=== PATIENT | female | born 1985 | race Caucasian/White ===

== ENCOUNTER → 2017-01-18 | Outpatient (REF) | payer OTHER | LOC: M LAB REF 19:22 | PROVIDERS: ATTEND Physician Assistant | DX: N39.0 Urinary tract infection, site not specified (principal) ==

== ENCOUNTER 2017-05-25 09:39 | Emergency (ER) | payer OTHER ==
[2017-05-25] MEDS: KETOROLAC 60 MG/2 ML VIAL (J1885) IM (11:14)
== END 2017-05-25 11:33 | disposition home or self-care (01) ==
LOC: M ED 09:39
DX: S16.1XXA Strain of muscle, fascia and tendon at neck level, initial encounter (principal); G44.209 Tension-type headache, unspecified, not intractable; G43.909 Migraine, unspecified, not intractable, without status migrainosus; V49.9XXA Car occupant (driver) (passenger) injured in unspecified traffic accident, initial encounter; Y92.9 Unspecified place or not applicable; Y93.9 Activity, unspecified; Z79.3 Long term (current) use of hormonal contraceptives; Z79.899 Other long term (current) drug therapy; Z88.8 Allergy status to other drugs, medicaments and biological substances
CPT/HCPCS: J1885

== ENCOUNTER → 2017-05-25 | Outpatient (CLI) | payer OTHER ==
[2017-05-25 12:17] LABS: HEMATOCRIT 42.6 % (36.0-47.0); HEMOGLOBIN 13.7 g/dl (12.0-16.0); MEAN CORPUSCULAR HGB CONC 32.2 g/dl (32.0-36.5); MEAN CORPUSCULAR VOLUME 90.3 fl (80.0-96.0); PLATELET COUNT, AUTOMATED 317 10^3/uL (150-450); RED BLOOD COUNT 4.72 10^6/uL (4.00-5.40)
[2017-05-25 12:43] LABS: ERYTHROCYTE SEDIMENTATION RATE 23 mm/hr (0-20)
[2017-05-25 13:03] LABS: TOTAL 25(OH) VITAMIN D 39.1 NG/ML (30.0-100.0)
[2017-05-25 13:10] LABS: ALBUMIN 3.6 GM/DL (3.2-5.2); ALKALINE PHOSPHATASE 69 U/L (45-117); ALT/SGPT 26 U/L (12-78); ANION GAP 6 MEQ/L (8-16); AST/SGOT 17 U/L (7-37); BILIRUBIN,TOTAL 0.5 MG/DL (0.2-1.0); BLOOD UREA NITROGEN 11 MG/DL (7-18); CALCIUM LEVEL 9.4 MG/DL (8.5-10.1); CARBON DIOXIDE LEVEL 29 MEQ/L (21-32); CHLORIDE LEVEL 105 MEQ/L (98-107); CHOLESTEROL LEVEL 217 MG/DL (<200); CHOLESTEROL RISK RATIO 3.945 (<5); CREATININE FOR GFR 0.81 MG/DL (0.55-1.02); GLOMERULAR FILTRATION RATE > 60.0 (>60); GLUCOSE, FASTING 85 MG/DL (70-105); HDL CHOLESTEROL 55 MG/DL (>40); IRON (FE) 78 UG/DL (50-170); LDL CHOLESTEROL 119.4 MG/DL (<100); NON-HDL-C 162 MG/DL; PERCENT SATURATION 20.2 % (13.2-45.0); POTASSIUM SERUM 4.6 MEQ/L (3.5-5.1); RHEUMATOID FACTOR QUANT < 10.0 IU/ML (0-15.0); SODIUM LEVEL 140 MEQ/L (136-145); THYROID STIMULATING HORMONE 0.907 uIU/ML (0.358-3.740); TOTAL IRON BINDING CAPACITY 386 UG/DL (250-450); TOTAL PROTEIN 7.2 GM/DL (6.4-8.2); TRIGLYCERIDES LEVEL 213 MG/DL (<150)
== END ==
LOC: M LAB 11:39
DX: D64.9 Anemia, unspecified (principal); E03.9 Hypothyroidism, unspecified
CPT/HCPCS: 83550

== ENCOUNTER → 2017-11-24 | Outpatient (CLI) | payer OTHER ==
[2017-11-24 11:59] LABS: HEMATOCRIT 44.1 % (36.0-47.0); HEMOGLOBIN 14.6 g/dl (12.0-15.5); MEAN CORPUSCULAR HEMOGLOBIN 29.7 pg (27.0-33.0); MEAN CORPUSCULAR HGB CONC 33.1 g/dl (32.0-36.5); MEAN CORPUSCULAR VOLUME 89.6 fl (80.0-96.0); PLATELET COUNT, AUTOMATED 259 10^3/uL (150-450); RED BLOOD COUNT 4.92 10^6/uL (4.00-5.40); RED CELL DISTRIBUTION WIDTH 12.9 % (11.5-14.5); WHITE BLOOD COUNT 14.1 10^3/uL (4.0-10.0)
[2017-11-24 12:36] LABS: ALBUMIN 3.5 GM/DL (3.2-5.2); ALBUMIN/GLOBULIN RATIO 0.88 (1.00-1.93); ALKALINE PHOSPHATASE 75 U/L (45-117); ALT/SGPT 36 U/L (12-78); ANION GAP 7 MEQ/L (8-16); AST/SGOT 17 U/L (7-37); BILIRUBIN,TOTAL 0.6 MG/DL (0.2-1.0); BLOOD UREA NITROGEN 16 MG/DL (7-18); CARBON DIOXIDE LEVEL 29 MEQ/L (21-32); CHLORIDE LEVEL 102 MEQ/L (98-107); CHOLESTEROL LEVEL 215 MG/DL (<200); CHOLESTEROL RISK RATIO 3.706 (<5); CREATININE FOR GFR 0.75 MG/DL (0.55-1.30); GLOMERULAR FILTRATION RATE > 60.0 (>60); GLUCOSE, FASTING 83 MG/DL (70-100); HDL CHOLESTEROL 58 MG/DL (>40); IRON (FE) 127 UG/DL (50-170); NON-HDL-C 157 MG/DL; PERCENT SATURATION 32.9 % (13.2-45.0); POTASSIUM SERUM 4.4 MEQ/L (3.5-5.1); SODIUM LEVEL 138 MEQ/L (136-145); TOTAL IRON BINDING CAPACITY 386 UG/DL (250-450); TOTAL PROTEIN 7.5 GM/DL (6.4-8.2); TRIGLYCERIDES LEVEL 110 MG/DL (<150)
[2017-11-24 12:43] LABS: ESTIMATED AVERAGE GLUCOSE 114 MG/DL (60-110); HEMOGLOBIN A1c 5.6 %
[2017-11-24 12:50] LABS: TOTAL 25(OH) VITAMIN D 36.2 NG/ML (30.0-100.0)
== END ==
LOC: M LAB 11:20
DX: D64.9 Anemia, unspecified (principal)
CPT/HCPCS: 83550

== ENCOUNTER → 2019-05-13 | Outpatient (CLI) | payer OTHER ==
[~2019-05-13] MED LIST: BYST10TA2; CARA1TAB6 PO; IBUP80TA PO; NORC1TAB7 PO; ORTH1TAB8 PO; ROBA500T PO; TRAZ-163
--- NOTE | 2019-05-13 11:17 | REP ---
Clinical: Pneumonia. Technique: PA and lateral. Comparison: 01/21/2016. Findings: Lingular infiltrate compatible with pneumonia/atelectasis. Remainder examination appears normal. Impression: Lingular opacities suggesting atelectasis/pneumonia. Follow-up to resolution recommended. Electronically Signed by Rivas Winters MD 05/13/2019 11:08 A
== END ==
LOC: M RAD 10:44
PROVIDERS: ATTEND Family Medicine
DX: J18.9 Pneumonia, unspecified organism (principal)

== ENCOUNTER → 2019-06-27 | Outpatient (REF) | payer OTHER ==
[~2019-06-27] MED LIST changes: -TRAZ-163; +TRAZ-257
[2019-06-27 18:43] LABS: INFLUENZA A AMPLIFICATION NEGATIVE (NEGATIVE); INFLUENZA B AMPLIFICATION POSITIVE (NEGATIVE)
== END ==
LOC: M LAB REF 17:59
PROVIDERS: ATTEND Physician Assistant
DX: J10.1 Influenza due to other identified influenza virus with other respiratory manifestations (principal)

== ENCOUNTER → 2019-07-29 | Outpatient (CLI) | payer OTHER ==
--- NOTE | 2019-07-29 21:42 | REP ---
Clinical: Periumbilical pain. Technique: Real time luque scale ultrasound examination using curved array transducer. Findings: Ultrasound examination demonstrates a 2.9 cm fat containing periumbilical hernia. Peritoneal defect measures approximately 18 mm on Valsalva. Impression: Fat containing periumbilical hernia. Electronically Signed by Rivas Winters MD 07/29/2019 09:33 P
== END ==
LOC: M RAD 17:21
PROVIDERS: ATTEND Surgery
DX: K42.9 Umbilical hernia without obstruction or gangrene (principal)

== ENCOUNTER → 2019-09-11 | Outpatient (CLI) | payer OTHER ==
[~2019-09-11] MED LIST changes: +BENA25CA4 PO; +CETI10CA13 PO; +CIPR-249 PO; +CVS10CAP8 PO; +OMEP40CA97 PO; +ZYRTTAB8 PO
== END ==
LOC: M LABSMTC 10:38
PROVIDERS: ATTEND Anesthesiology
DX: Z01.818 Encounter for other preprocedural examination (principal); Z11.59 Encounter for screening for other viral diseases

== ENCOUNTER 2019-09-13 10:51 | Day surgery (SDC) | payer OTHER ==
[~2019-09-13] VITALS: Ht 157.5 cm; Wt 96.2 kg
[~2019-09-13 10:51] MED LIST changes: +LIDOCAINE 1% MDV 20ML VIAL SQ PRN; +LR 1,000 ML IV ONE; +ceFAZolin SOD 2 GM in IV 1 EA IV ONE
[2019-09-13] MEDS ORDERED: propofoL 200 MG/20 ML VIAL As Ordered ONE (11:07)
[2019-09-13] MEDS ORDERED: ONDANSETRON 4MG/2ML VIAL As Ordered ONE (11:07)
[2019-09-13] MEDS ORDERED: LIDOCAINE 2% 100MG/5ML SDV (FOR ANES.) As Ordered ONE (11:07)
[2019-09-13] MEDS ORDERED: fentaNYL 250 MCG/5 ML INJECTION (J3010) As Ordered ONE (11:07)
[2019-09-13] MEDS ORDERED: MIDAZOLAM INJ 2MG/2ML VIAL (J2250 PER 1MG) As Ordered ONE (11:07)
[2019-09-13] MEDS ORDERED: ROCURONIUM BROMIDE 50 MG/5 ML VIAL As Ordered ONE ×2 (11:07→12:59)
[2019-09-13] MEDS ORDERED: dexameTHASONE 4 MG/ML 1ML VIAL (J1100 PER 1MG) As Ordered ONE (11:07)
[2019-09-13 11:44] LABS: HEMATOCRIT 42.7 % (36.0-47.0); MEAN CORPUSCULAR HEMOGLOBIN 29.9 pg (27.0-33.0); MEAN CORPUSCULAR HGB CONC 32.8 g/dl (32.0-36.5); PLATELET COUNT, AUTOMATED 290 10^3/uL (150-450); RED BLOOD COUNT 4.69 10^6/uL (4.00-5.40); WHITE BLOOD COUNT 12.5 10^3/uL (4.0-10.0)
[2019-09-13] MEDS ORDERED: BUPIVACAINE/EPIN 0.25% 30 ML VIAL As Ordered ONE (11:50)
[2019-09-13] MEDS ORDERED: ACETAMINOPHEN 1000MG 100ML IV BTL (OFIRMEV) (J0131 PER 10MG) As Ordered ONE (12:24)
[2019-09-13] MEDS ORDERED: SUGAMMADEX SODIUM 500 MG/5 ML VIAL (BRIDION) As Ordered ONE (12:25)
[2019-09-13] MEDS ORDERED: HYDROmorphone HCL 2 MG/ML 1ML VIAL (J1170) As Ordered ONE (12:34)
[2019-09-13] MEDS ORDERED: NORCO, ANEXSIA 5/325MG TABLET (HYDROcodone/ACETAMINOPHEN) PO PRN (14:00)
[2019-09-13] MEDS ORDERED: ONDANSETRON 4MG/2ML VIAL IV PRN (14:00)
[2019-09-13] MEDS ORDERED: LR 1,000 ML IV SCH (14:00)
[2019-09-13] MEDS: fentaNYL 100 MCG/2 ML INJECTION (J3010) IV PRN ×4 (14:05→14:46)
[2019-09-13] MEDS ORDERED: METOCLOPRAMIDE INJ 10MG/2ML VIAL (J2765 PER 1) As Ordered ONE (14:26)
[2019-09-13] MEDS: oxyCODONE 5MG TAB PO PRN ×2 (14:31→14:56)
[2019-09-13] MEDS ORDERED: METOCLOPRAMIDE INJ 10MG/2ML VIAL (J2765 PER 1) IV PRN (14:45)
[2019-09-13 16:15] VITALS: BP 163/89
--- NOTE | 2019-09-17 16:28 | RO ---
DATE OF PROCEDURE: 09/13/2019 PREOPERATIVE DIAGNOSES: Incarcerated umbilical hernia and symptomatic cholelithiasis. POSTOPERATIVE DIAGNOSES: Incarcerated umbilical hernia and symptomatic cholelithiasis. PROCEDURE: Robotic incarcerated hernia repair and cholecystectomy. SURGEON: Beto Vegas DO HIGH PRESSURE OPERATOR: Selene Roth NP ANESTHESIA: General. ESTIMATED BLOOD LOSS: 5. COMPLICATIONS: None. INDICATIONS FOR PROCEDURE: The patient is a 34-year-old female who presents with periumbilical pain. She also had a symptomatic cholelithiasis. Recommendation was to proceed with robotic repair of the hernia as well as a removal of the gallbladder. Risks and benefits of procedure not limited but including bleeding, infection, hernia formation, hernia recurrence, damage to surrounding structures, need for further surgery were discussed in detail with the patient. Informed consent was obtained and procedure was planned. DESCRIPTION OF PROCEDURE: Patient brought back to operating room #7. After sufficient sedation, the abdomen was sterilely prepped and draped. Next, a time-out was done to confirm proper patient and proper procedure. Following that an 8 mm incision made in left lower quadrant, Veress needle inserted and the abdomen was insufflated to 50 mmHg. Veress needle was then removed and an 8 mm robotic Optiview port was used to gain access to the abdomen. Once the abdomen was entered, three more ports were placed across the upper abdomen. The gallbladder fundus was elevated up. The cystic duct and cystic artery were carefully dissected free with a combination of blunt and sharp dissection, and then they were both doubly clipped and cut. Gallbladder was then dissected from the gallbladder fossa using electrocautery. Once the gallbladder was removed, it was placed inside of a 5 mm Endo Catch bag and brought out through the right lateral port site port. The port was then replaced. Using that port the epigastric in the left-sided port the robot was then undocked and re-docked aiming towards the pelvis for the hernia repair. The omentum was dissected free from the hernia sac. A horizontal incision was then made into the preperitoneal space and the preperitoneal space was then dissected inferiorly circumferentially around the hernia defect. Once the hernia was completely reduced, the fascia was closed with an #0 Stratafix suture. The peritoneum defect was then closed with a #2-0 V-Loss, thus ending that portion of procedure. Ports were then removed. Abdomen was desufflated. Skin incisions closed with #4-0 Vicryl subcuticular sutures. The abdomen was cleaned and dried. Steri-Strips, 4 x 4 and tape were applied, thus ending procedure.
== END 2019-09-13 16:30 | disposition home or self-care (01) ==
LOC: M SDC 10:51
PROVIDERS: ATTEND Surgery
DX: K82.4 Cholesterolosis of gallbladder (principal); K42.0 Umbilical hernia with obstruction, without gangrene; K21.9 Gastro-esophageal reflux disease without esophagitis; J45.909 Unspecified asthma, uncomplicated; F32.9 Major depressive disorder, single episode, unspecified; Z88.1 Allergy status to other antibiotic agents; Z88.8 Allergy status to other drugs, medicaments and biological substances; Z79.899 Other long term (current) drug therapy
CPT/HCPCS: 36415; 47562; 49653; 81025; 85027; 88304; J0131; J0690; J1100; J1170; J2250; J2405; J2765; J3010

== ENCOUNTER → 2020-03-31 | Outpatient (CLI) | payer OTHER ==
[~2020-03-31] MED LIST changes: -LIDOCAINE 1% MDV 20ML VIAL SQ PRN; -LR 1,000 ML IV ONE; -ceFAZolin SOD 2 GM in IV 1 EA IV ONE
[2020-03-31 12:35] LABS: HEMATOCRIT 46.4 % (36.0-47.0); HEMOGLOBIN 14.7 g/dl (12.0-15.5); MEAN CORPUSCULAR HEMOGLOBIN 28.9 pg (27.0-33.0); MEAN CORPUSCULAR HGB CONC 31.7 g/dl (32.0-36.5); MEAN CORPUSCULAR VOLUME 91.3 fl (80.0-96.0); PLATELET COUNT, AUTOMATED 269 10^3/uL (150-450); RED BLOOD COUNT 5.08 10^6/uL (4.00-5.40); WHITE BLOOD COUNT 11.1 10^3/uL (4.0-10.0)
[2020-03-31 13:19] LABS: ALBUMIN 3.7 GM/DL (3.2-5.2); ALT/SGPT 23 U/L (12-78); BILIRUBIN,TOTAL 0.4 MG/DL (0.2-1.0); BLOOD UREA NITROGEN 14 MG/DL (7-18); CALCIUM LEVEL 8.9 MG/DL (8.5-10.1); CARBON DIOXIDE LEVEL 27 MEQ/L (21-32); CHLORIDE LEVEL 105 MEQ/L (98-107); CHOLESTEROL LEVEL 183 MG/DL (<200); CHOLESTEROL RISK RATIO 4.066 (<5); GLOMERULAR FILTRATION RATE > 60.0 (>60); GLUCOSE, FASTING 81 MG/DL (70-100); HDL CHOLESTEROL 45 MG/DL (>40); LDL CHOLESTEROL 122 MG/DL (<100); NON-HDL-C 138 MG/DL; POTASSIUM SERUM 4.3 MEQ/L (3.5-5.1); SODIUM LEVEL 139 MEQ/L (136-145); TOTAL 25(OH) VITAMIN D 28.2 NG/ML (30.0-100.0); TOTAL PROTEIN 7.3 GM/DL (6.4-8.2); TRIGLYCERIDES LEVEL 82 MG/DL (<150)
[2020-03-31 13:44] LABS: HEMOGLOBIN A1c 5.5 %
== END ==
LOC: M LAB 11:10
PROVIDERS: ATTEND Family Medicine
DX: E03.9 Hypothyroidism, unspecified (principal); D64.9 Anemia, unspecified; R53.83 Other fatigue

== ENCOUNTER → 2020-06-29 | Outpatient (CLI) | payer OTHER ==
[2020-06-29 11:35] LABS: PERCENT SATURATION 13.1 % (13.2-45.0); THYROID STIMULATING HORMONE 2.28 uIU/ML (0.358-3.740)
[2020-06-29 11:39] LABS: FOLLICLE STIMULATING HORMONE 8.5 mIU/mL; LUTEINIZING HORMONE 20.3 mIU/mL; TOTAL 25(OH) VITAMIN D 54.6 NG/ML (30.0-100.0)
[2020-06-29 11:43] LABS: ESTRADIOL 120.8 PG/ML
== END ==
LOC: M LAB 10:00
PROVIDERS: ATTEND Family Medicine
DX: E03.9 Hypothyroidism, unspecified (principal); R53.83 Other fatigue

== ENCOUNTER → 2020-09-15 | Outpatient (CLI) | payer SELFPAY | LOC: M LABSMTC 10:28 | PROVIDERS: ATTEND Pediatrics | DX: Z11.52 Encounter for screening for COVID-19 (principal) ==

== ENCOUNTER → 2020-09-18 | Outpatient (CLI) | payer SELFPAY | LOC: M LABSMTC 10:03 | PROVIDERS: ATTEND Pediatrics | DX: Z20.828 Contact with and (suspected) exposure to other viral communicable diseases (principal); Z11.59 Encounter for screening for other viral diseases ==

== ENCOUNTER → 2021-02-08 | Outpatient (CLI) | payer OTHER ==
[~2021-02-08] MED LIST changes: -CVS10CAP8 PO; +MELA10CA6 PO; +OMEP40CA4 PO; -OMEP40CA97 PO
--- NOTE | 2021-02-08 12:20 | REP ---
INDICATION: PNEUMONIA *STAT*. COMPARISON: 05/13/2019 TECHNIQUE: PA and lateral FINDINGS: The superior mediastinal structures are midline. The cardiac silhouette is unremarkable in size, shape, and position. The diaphragmatic surfaces of the lungs are regular, and the costophrenic angles are clear. The pulmonary chawla are clear. The imaged osseous structures are intact. IMPRESSION: There is no acute cardiopulmonary disease. <Electronically signed by Cornel Morales > 02/08/21 [id number]
== END ==
LOC: M RAD 11:33
PROVIDERS: ATTEND Family Medicine
DX: J18.9 Pneumonia, unspecified organism (principal)

== ENCOUNTER → 2021-03-20 | Outpatient (CLI) | payer OTHER ==
[2021-03-20 08:35] LABS: HEMOGLOBIN 15.2 g/dl (12.0-15.5); MEAN CORPUSCULAR HEMOGLOBIN 30.9 pg (27.0-33.0); MEAN CORPUSCULAR HGB CONC 33.8 g/dl (32.0-36.5); MEAN CORPUSCULAR VOLUME 91.5 fl (80.0-96.0); PLATELET COUNT, AUTOMATED 279 10^3/uL (150-450); RED BLOOD COUNT 4.92 10^6/uL (4.00-5.40); WHITE BLOOD COUNT 14.1 10^3/uL (4.0-10.0)
[2021-03-20 09:14] LABS: HEMOGLOBIN A1c 5.5 %
[2021-03-20 09:17] LABS: ALBUMIN 3.7 GM/DL (3.2-5.2); ALT/SGPT 35 U/L (12-78); BILIRUBIN,TOTAL 0.4 MG/DL (0.2-1.0); BLOOD UREA NITROGEN 14 MG/DL (7-18); CALCIUM LEVEL 9.2 MG/DL (8.5-10.1); CARBON DIOXIDE LEVEL 28 MEQ/L (21-32); CHLORIDE LEVEL 105 MEQ/L (98-107); CHOLESTEROL LEVEL 189 MG/DL (<200); CHOLESTEROL RISK RATIO 4.108 (<5); CREATININE FOR GFR 0.76 MG/DL (0.55-1.30); GLOMERULAR FILTRATION RATE > 60.0 (>60); GLUCOSE, FASTING 97 MG/DL (70-100); HDL CHOLESTEROL 46 MG/DL (>40); LDL CHOLESTEROL 126 MG/DL (<100); NON-HDL-C 143 MG/DL; POTASSIUM SERUM 4.6 MEQ/L (3.5-5.1); SODIUM LEVEL 138 MEQ/L (136-145); TOTAL PROTEIN 7.6 GM/DL (6.4-8.2); TRIGLYCERIDES LEVEL 84 MG/DL (<150)
--- NOTE | 2021-03-20 09:46 | REP ---
INDICATION: ANEMIA / LABS 1ST / EKG 2ND. COMPARISON: 02/08/2021, 05/13/2019 TECHNIQUE: PA and lateral FINDINGS: The lung chawla are well inflated. There is no pleural effusion, lateral pleural thickening apical scarring or pneumothorax. No definite infiltrate, pulmonary nodule or parenchymal mass. The heart, mediastinal and hilar contours are normal. The airway is intact. The aorta is unremarkable. No free air under the diaphragm. The bony thorax shows no acute compression deformity or focal lesion. IMPRESSION: 1. No acute cardiopulmonary change. <Electronically signed by Telly Mackey > 03/20/21 0942
--- NOTE | 2021-03-20 15:47 | ECGEPIP ---
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 No significant change compared with 01/21/2016. Electronically Signed on 03-20-2021 15:46:57 EDT by Ej Walton
[2021-03-22 10:37] LABS: TOTAL 25(OH) VITAMIN D 73.2 NG/ML (30.0-100.0)
== END ==
LOC: M LAB 08:11
PROVIDERS: ATTEND Family Medicine
DX: D64.9 Anemia, unspecified (principal); R53.83 Other fatigue

== ENCOUNTER → 2021-05-12 | Outpatient (CLI) | payer OTHER ==
--- NOTE | 2021-05-12 11:02 | REP ---
INDICATION: SHOULDER PAIN COMPARISON: None. TECHNIQUE: Internal rotation, external rotation, and Y view. FINDINGS: Smooth benign calcifications along the posterior aspect of the joint space adjacent to the humeral tuberosity consistent with calcific tendinopathy. Remainder of the examination is normal. IMPRESSION: Calcific tendinopathy. <Electronically signed by Rivas Winters > 05/12/21 1054
== END ==
LOC: M RAD 10:05
PROVIDERS: ATTEND Family Medicine
DX: M65.222 Calcific tendinitis, left upper arm (principal)

== ENCOUNTER → 2021-08-28 | Outpatient (CLI) | payer OTHER ==
[2021-08-28 10:34] LABS: HEMATOCRIT 44.5 % (36.0-47.0); HEMOGLOBIN 14.8 g/dl (12.0-15.5); MEAN CORPUSCULAR HGB CONC 33.3 g/dl (32.0-36.5); MEAN CORPUSCULAR VOLUME 93.1 fl (80.0-96.0); PLATELET COUNT, AUTOMATED 283 10^3/uL (150-450); RED BLOOD COUNT 4.78 10^6/uL (4.00-5.40); WHITE BLOOD COUNT 9.9 10^3/uL (4.0-10.0)
[2021-08-28 11:14] LABS: ALBUMIN 3.6 GM/DL (3.2-5.2); ALT/SGPT 65 U/L (12-78); BILIRUBIN,TOTAL 0.6 MG/DL (0.2-1.0); BLOOD UREA NITROGEN 11 MG/DL (7-18); CALCIUM LEVEL 8.8 MG/DL (8.5-10.1); CARBON DIOXIDE LEVEL 32 MEQ/L (21-32); CHLORIDE LEVEL 105 MEQ/L (98-107); CHOLESTEROL LEVEL 171 MG/DL (<200); CHOLESTEROL RISK RATIO 4.275 (<5); CREATININE FOR GFR 0.79 MG/DL (0.55-1.30); GLOMERULAR FILTRATION RATE > 60.0 (>60); GLUCOSE, FASTING 88 MG/DL (70-100); HDL CHOLESTEROL 40 MG/DL (>40); LDL CHOLESTEROL 103 MG/DL (<100); NON-HDL-C 131 MG/DL; POTASSIUM SERUM 4.3 MEQ/L (3.5-5.1); SODIUM LEVEL 139 MEQ/L (136-145); THYROXINE (T4) 8.7 UG/DL (4.5-12.0); TRIGLYCERIDES LEVEL 139 MG/DL (<150)
[2021-08-28 11:15] LABS: HEMOGLOBIN A1c 5.4 %
[2021-08-30 07:50] LABS: TOTAL 25(OH) VITAMIN D 71.8 NG/ML (30.0-100.0)
[2021-08-30 07:56] LABS: TOTAL T3 119.6 NG/DL (60.0-181.0)
== END ==
LOC: M LAB 08:26
PROVIDERS: ATTEND Family Medicine
DX: D64.9 Anemia, unspecified (principal); R53.83 Other fatigue; E03.9 Hypothyroidism, unspecified

== ENCOUNTER → 2022-03-19 | Outpatient (CLI) | payer OTHER ==
[2022-03-19 09:07] LABS: BASO # 0.1 10^3/uL (0.0-0.2); BASO % 0.3 % (0.0-1.0); EOS # 0.2 10^3/uL (0.0-0.5); EOS % 1.2 % (0.0-3.0); HEMATOCRIT 47.2 % (36.0-47.0); HEMOGLOBIN 15.1 g/dl (12.0-15.5); LYMPH # 3.6 10^3/uL (1.5-5.0); LYMPH % 20.1 % (24.0-44.0); MEAN CORPUSCULAR HEMOGLOBIN 30.3 pg (27.0-33.0); MEAN CORPUSCULAR VOLUME 94.8 fl (80.0-96.0); MONO # 0.9 10^3/uL (0.0-0.8); MONO % 4.8 % (2.0-8.0); PLATELET COUNT, AUTOMATED 283 10^3/uL (150-450); RED BLOOD COUNT 4.98 10^6/uL (4.00-5.40); WHITE BLOOD COUNT 17.8 10^3/uL (4.0-10.0)
[2022-03-24 10:08] LABS: ANTI TETANUS ANTIBODY 0.69 IU/mL (<0.10); EBV AB TO NUCLEAR ANTIGEN <18.0 U/mL (0.0-17.9); EBV VIRAL CAPSID AG IgM <36.0 U/mL (0.0-35.9); STREP PNEUMO TYPE 1 0.4 ug/mL (>1.3); STREP PNEUMO TYPE 12F <0.1 ug/mL (>1.3); STREP PNEUMO TYPE 14 <0.1 ug/mL (>1.3); STREP PNEUMO TYPE 18C 0.3 ug/mL (>1.3); STREP PNEUMO TYPE 19A 1.2 ug/mL (>1.3); STREP PNEUMO TYPE 19F 0.5 ug/mL (>1.3); STREP PNEUMO TYPE 23F <0.1 ug/mL (>1.3); STREP PNEUMO TYPE 3 1.4 ug/mL (>1.3); STREP PNEUMO TYPE 4 0.2 ug/mL (>1.3); STREP PNEUMO TYPE 6B <0.1 ug/mL (>1.3); STREP PNEUMO TYPE 7F 0.3 ug/mL (>1.3); STREP PNEUMO TYPE 8 0.3 ug/mL (>1.3); STREP PNEUMO TYPE 9N <0.1 ug/mL (>1.3); STREP PNEUMO TYPE 9V 0.2 ug/mL (>1.3)
== END ==
LOC: M LAB 08:26
PROVIDERS: ATTEND Allergy & Immunology
DX: J32.9 Chronic sinusitis, unspecified (principal); R53.81 Other malaise

== ENCOUNTER → 2022-05-28 | Outpatient (CLI) | payer OTHER ==
[2022-05-28 09:58] LABS: BASO # 0.1 10^3/uL (0.0-0.2); BASO % 0.4 % (0.0-1.0); EOS # 0.2 10^3/uL (0.0-0.5); EOS % 1.5 % (0.0-3.0); HEMATOCRIT 44.7 % (36.0-47.0); HEMOGLOBIN 14.8 g/dl (12.0-15.5); LYMPH # 3.9 10^3/uL (1.5-5.0); LYMPH % 27.8 % (24.0-44.0); MEAN CORPUSCULAR HEMOGLOBIN 30.8 pg (27.0-33.0); MEAN CORPUSCULAR HGB CONC 33.1 g/dl (32.0-36.5); MEAN CORPUSCULAR VOLUME 92.9 fl (80.0-96.0); MONO # 0.8 10^3/uL (0.0-0.8); MONO % 5.5 % (2.0-8.0); NEUTROPHILS % 64.4 % (36.0-66.0); PLATELET COUNT, AUTOMATED 282 10^3/uL (150-450); RED BLOOD COUNT 4.81 10^6/uL (4.00-5.40)
== END ==
LOC: M LAB 09:43
PROVIDERS: ATTEND Allergy & Immunology
DX: R79.9 Abnormal finding of blood chemistry, unspecified (principal); J32.9 Chronic sinusitis, unspecified

== ENCOUNTER → 2022-07-06 | Outpatient (CLI) | payer OTHER ==
[2022-07-06 11:21] LABS: BASO # 0.1 10^3/uL (0.0-0.2); BASO % 0.5 % (0.0-1.0); EOS # 0.2 10^3/uL (0.0-0.5); EOS % 1.4 % (0.0-3.0); HEMATOCRIT 45.6 % (36.0-47.0); HEMOGLOBIN 14.8 g/dl (12.0-15.5); LYMPH # 3.1 10^3/uL (1.5-5.0); LYMPH % 25.5 % (24.0-44.0); MEAN CORPUSCULAR HEMOGLOBIN 30.3 pg (27.0-33.0); MEAN CORPUSCULAR HGB CONC 32.5 g/dl (32.0-36.5); MEAN CORPUSCULAR VOLUME 93.3 fl (80.0-96.0); MONO # 0.7 10^3/uL (0.0-0.8); MONO % 5.7 % (2.0-8.0); NEUTROPHILS # 8.1 10^3/uL (1.5-8.5); NEUTROPHILS % 66.5 % (36.0-66.0); PLATELET COUNT, AUTOMATED 254 10^3/uL (150-450); RED BLOOD COUNT 4.89 10^6/uL (4.00-5.40); WHITE BLOOD COUNT 12.2 10^3/uL (4.0-10.0)
== END ==
LOC: M LAB 10:47
PROVIDERS: ATTEND Allergy & Immunology
DX: R79.9 Abnormal finding of blood chemistry, unspecified (principal)

== ENCOUNTER 2022-07-12 10:44 | Emergency (ER) | payer OTHER ==
[~2022-07-12] VITALS: Ht 157.5 cm; Wt 99.1 kg
[2022-07-12] MEDS ORDERED: ERGO500029 PO (11:37)
[2022-07-12] MEDS ORDERED: ACYC1TAB PO (11:37)
[2022-07-12 13:15] VITALS: BP 145/92
== END 2022-07-12 13:18 | disposition home or self-care (01) ==
LOC: M ED 10:44
DX: M79.602 Pain in left arm (principal); W10.9XXA Fall (on) (from) unspecified stairs and steps, initial encounter; R51.9 Headache, unspecified; J45.909 Unspecified asthma, uncomplicated; Y99.0 Civilian activity done for income or pay; Z79.83 Long term (current) use of bisphosphonates; Z79.810 Long term (current) use of selective estrogen receptor modulators (SERMs); Z79.899 Other long term (current) drug therapy

== ENCOUNTER → 2022-08-15 | Outpatient (CLI) | payer OTHER ==
[~2022-08-15] MED LIST changes: +ACYC1TAB PO; +ERGO500029 PO
== END ==
LOC: M PLAIMG 13:18
PROVIDERS: ATTEND Orthopaedic Surgery
DX: M79.622 Pain in left upper arm (principal)

== ENCOUNTER → 2022-11-01 | Outpatient (CLI) | payer OTHER | LOC: M RAD 10:19 | PROVIDERS: ATTEND Family Medicine | DX: J44.9 Chronic obstructive pulmonary disease, unspecified (principal) ==

== ENCOUNTER → 2022-11-16 | Outpatient (REF) | payer OTHER | LOC: M SFHCWAGY 17:37 | PROVIDERS: ATTEND Nurse Practitioner Family | DX: Z12.4 Encounter for screening for malignant neoplasm of cervix (principal) | CPT/HCPCS: 87624; G0123 ==

== ENCOUNTER → 2023-07-06 | Outpatient (REF) | payer OTHER ==
[2023-07-06 21:35] LABS: APPEARANCE, URINE HAZY (CLEAR); BACTERIA, URINE AUTO NEGATIVE (NEGATIVE); BILIRUBIN, URINE AUTO NEGATIVE (NEGATIVE); BLOOD, URINE BLOOD NEGATIVE (NEGATIVE); COLOR, URINE YELLOW (YELLOW); GLUCOSE, URINE (UA) AUTO NEGATIVE (NEGATIVE); KETONE, URINE AUTO NEGATIVE (NEGATIVE); LEUKOCYTE ESTERASE, URINE AUTO 2+ (NEGATIVE); MUCUS, URINE SMALL (NEGATIVE); NITRITE, URINE AUTO NEGATIVE (NEGATIVE); PROTEIN, URINE AUTO NEGATIVE (NEGATIVE); RBC, URINE AUTO 1 /HPF (0-3); SPECIFIC GRAVITY URINE AUTO 1.025 (1.002-1.035); SQUAMOUS EPITHELIAL CELL UR AU 5 /HPF (0-6); UROBILINOGEN, URINE AUTO 0.2 mg/dL (0.0-2.0); WBC, URINE AUTO 5 /HPF (0-3)
== END ==
LOC: M LAB REF 21:23
PROVIDERS: ATTEND Physician Assistant
DX: N39.0 Urinary tract infection, site not specified (principal)

== ENCOUNTER → 2023-07-29 | Outpatient (CLI) | payer OTHER ==
[2023-07-29 10:47] LABS: HEMATOCRIT 46.2 % (36.0-47.0); HEMOGLOBIN 15.6 g/dl (12.0-15.5); MEAN CORPUSCULAR HEMOGLOBIN 30.3 pg (27.0-33.0); MEAN CORPUSCULAR HGB CONC 33.8 g/dl (32.0-36.5); MEAN CORPUSCULAR VOLUME 89.7 fl (80.0-96.0); PLATELET COUNT, AUTOMATED 301 10^3/uL (150-450); RED BLOOD COUNT 5.15 10^6/uL (4.00-5.40); WHITE BLOOD COUNT 9.7 10^3/uL (4.0-10.0)
[2023-07-29 11:04] LABS: HEMOGLOBIN A1c 5.6 % (4.0-6.0)
[2023-07-29 11:15] LABS: ALBUMIN 3.7 G/DL (3.2-5.2); ALKALINE PHOSPHATASE 61 U/L (46-116); ALT/SGPT 36 U/L (7.0-40); AST/SGOT 17 U/L (<34); BILIRUBIN,TOTAL 0.6 MG/DL (0.3-1.2); BLOOD UREA NITROGEN 9 MG/DL (9-23); CALCIUM LEVEL 9.1 MG/DL (8.5-10.1); CARBON DIOXIDE LEVEL 28 MMOL/L (20-31); CHLORIDE LEVEL 104 MMOL/L (98-107); CHOLESTEROL LEVEL 155 MG/DL (<200); CHOLESTEROL RISK RATIO 4.17 (<5); CREATININE FOR GFR 0.72 MG/DL (0.55-1.30); GLOMERULAR FILTRATION RATE > 60.0 (>58); GLUCOSE, FASTING 108 MG/DL (60-100); HDL CHOLESTEROL 37.1 MG/DL (>40); LDL CHOLESTEROL 91.5 MG/DL (<100); NON-HDL-C 117.9 MG/DL; POTASSIUM SERUM 4.3 MMOL/L (3.5-5.1); SODIUM LEVEL 137 MMOL/L (136-145); TOTAL PROTEIN 7.1 G/DL (5.7-8.2); TRIGLYCERIDES LEVEL 132 MG/DL (<150)
[2023-07-29 11:17] LABS: THYROID STIMULATING HORMONE 2.332 uIU/ML (0.55-4.78); TOTAL 25(OH) VITAMIN D 102.8 NG/ML (20.0-100.0)
== END ==
LOC: M LAB 10:01
PROVIDERS: ATTEND Family Medicine
DX: I10 Essential (primary) hypertension (principal); R53.83 Other fatigue; E03.9 Hypothyroidism, unspecified

== ENCOUNTER → 2023-07-29 | Outpatient (CLI) | payer OTHER ==
[2023-07-29 10:47] LABS: BASO # 0.1 10^3/uL (0.0-0.2); BASO % 0.5 % (0.0-1.0); EOS # 0.1 10^3/uL (0.0-0.5); EOS % 1.2 % (0.0-3.0); HEMOGLOBIN 15.7 g/dl (12.0-15.5); LYMPH # 2.6 10^3/uL (1.5-5.0); LYMPH % 26.4 % (24.0-44.0); MEAN CORPUSCULAR HEMOGLOBIN 30.9 pg (27.0-33.0); MEAN CORPUSCULAR HGB CONC 34.1 g/dl (32.0-36.5); MEAN CORPUSCULAR VOLUME 90.6 fl (80.0-96.0); MONO # 0.8 10^3/uL (0.0-0.8); MONO % 7.7 % (2.0-8.0); NEUTROPHILS # 6.2 10^3/uL (1.5-8.5); NEUTROPHILS % 63.7 % (36.0-66.0); PLATELET COUNT, AUTOMATED 294 10^3/uL (150-450); RED BLOOD COUNT 5.08 10^6/uL (4.00-5.40)
[2023-07-31 13:51] LABS: WHITE BLOOD COUNT 9.7 10^3/uL (4.0-10.0)
== END ==
LOC: M LAB 10:03
PROVIDERS: ATTEND Allergy & Immunology
DX: R79.9 Abnormal finding of blood chemistry, unspecified (principal)

== ENCOUNTER → 2023-08-26 | Outpatient (CLI) | payer OTHER ==
[2023-08-26 18:59] LABS: APPEARANCE, URINE CLEAR (CLEAR); BACTERIA, URINE AUTO NEGATIVE (NEGATIVE); BILIRUBIN, URINE AUTO NEGATIVE (NEGATIVE); BLOOD, URINE BLOOD 1+ (NEGATIVE); COLOR, URINE YELLOW (YELLOW); GLUCOSE, URINE (UA) AUTO NEGATIVE (NEGATIVE); KETONE, URINE AUTO NEGATIVE (NEGATIVE); LEUKOCYTE ESTERASE, URINE AUTO NEGATIVE (NEGATIVE); MUCUS, URINE SMALL (NEGATIVE); NITRITE, URINE AUTO NEGATIVE (NEGATIVE); PROTEIN, URINE AUTO NEGATIVE (NEGATIVE); RBC, URINE AUTO 1 /HPF (0-3); SPECIFIC GRAVITY URINE AUTO 1.019 (1.002-1.035); SQUAMOUS EPITHELIAL CELL UR AU 1 /HPF (0-6); UROBILINOGEN, URINE AUTO 0.2 mg/dL (0.0-2.0); WBC, URINE AUTO 1 /HPF (0-3)
== END ==
LOC: M LAB 13:51
PROVIDERS: ATTEND Physician Assistant Medical
DX: N39.0 Urinary tract infection, site not specified (principal)

== ENCOUNTER → 2023-09-26 | Outpatient (CLI) | payer OTHER | LOC: M RAD 09:01 | PROVIDERS: ATTEND Family Medicine | DX: K76.0 Fatty (change of) liver, not elsewhere classified (principal); R10.13 Epigastric pain; R10.11 Right upper quadrant pain; Z90.49 Acquired absence of other specified parts of digestive tract ==

== ENCOUNTER → 2023-11-28 | Outpatient (CLI) | payer OTHER | LOC: M WHC 11:18 | PROVIDERS: ATTEND Nurse Practitioner Family | DX: Z12.31 Encounter for screening mammogram for malignant neoplasm of breast (principal) ==

== ENCOUNTER → 2024-05-14 | Outpatient (RCR) | payer OTHER ==
[~2024-05-14] MED LIST changes: -BYST10TA2; +BYST1TAB3
== END ==
LOC: M PT 11:26
PROVIDERS: ATTEND Nurse Practitioner Family
DX: N39.3 Stress incontinence (female) (male) (principal)

== ENCOUNTER 2024-06-13 08:21 | Outpatient (RCR) | payer OTHER | END 2024-06-14 | LOC: M PT 08:21 | PROVIDERS: ATTEND Nurse Practitioner Family | DX: N39.3 Stress incontinence (female) (male) (principal) ==

== ENCOUNTER 2024-06-21 07:38 | Outpatient (RCR) | payer OTHER ==
[~2024-06-21 07:38] MED LIST changes: +DEBL1TAB PO; +DOXY-440 PO; +MYO INOSITOL PO; +TIZA4CAP PO; +[UNRECOGNIZED DRUG - OTHER] PO; +allergy shot
== END 2024-07-12 ==
LOC: M PT 07:38
PROVIDERS: ATTEND Nurse Practitioner Family
DX: N39.3 Stress incontinence (female) (male) (principal)

== ENCOUNTER → 2024-12-02 | Outpatient (REF) | payer OTHER ==
[~2024-12-02] MED LIST changes: +ACYC-438 PO; -ACYC1TAB PO
[2024-12-04 15:38] LABS: HPV APTIMA Not Detected (Not Detected)
== END ==
LOC: M SFHCWAGY 15:05
PROVIDERS: ATTEND Nurse Practitioner Family
DX: Z12.4 Encounter for screening for malignant neoplasm of cervix (principal)
CPT/HCPCS: 87624; G0123

== ENCOUNTER → 2024-12-02 | Outpatient (CLI) | payer OTHER | LOC: M WHC 12:41 | PROVIDERS: ATTEND Nurse Practitioner Family | DX: Z12.31 Encounter for screening mammogram for malignant neoplasm of breast (principal) ==

== ENCOUNTER → 2025-02-08 | Outpatient (CLI) | payer OTHER ==
[2025-02-08 09:56] LABS: PLATELET COUNT, AUTOMATED 228 10^3/uL (150-450)
[2025-02-08 10:24] LABS: ALT/SGPT 31 U/L (7.0-40); AST/SGOT 24 U/L (<34); CALCIUM LEVEL 8.7 MG/DL (8.5-10.1); CARBON DIOXIDE LEVEL 25 MMOL/L (20-31); CHLORIDE LEVEL 106 MMOL/L (98-107); CHOLESTEROL LEVEL 147 MG/DL (<200); CHOLESTEROL RISK RATIO 4.26 (<5); CREATININE FOR GFR 0.75 MG/DL (0.55-1.30); GLOMERULAR FILTRATION RATE > 90.0 (>58); LDL CHOLESTEROL 96.1 MG/DL (<100); NON-HDL-C 112.5 MG/DL; POTASSIUM SERUM 4.1 MMOL/L (3.5-5.1); SODIUM LEVEL 136 MMOL/L (136-145); TRIGLYCERIDES LEVEL 82 MG/DL (<150)
[2025-02-08 10:25] LABS: FREE T4 1.06 NG/DL (0.89-1.76)
[2025-02-08 10:28] LABS: ESTIMATED AVERAGE GLUCOSE 114.0 MG/DL (60-110)
== END ==
LOC: M LAB 08:31
PROVIDERS: ATTEND Physician Assistant
DX: K21.9 Gastro-esophageal reflux disease without esophagitis (principal); Z68.39 Body mass index [BMI] 39.0-39.9, adult; K76.0 Fatty (change of) liver, not elsewhere classified

== ENCOUNTER → 2025-05-13 | Outpatient (REF) | payer OTHER | LOC: M SFHCADAM 16:52 | PROVIDERS: ATTEND Family Medicine | DX: R30.0 Dysuria (principal) ==